=== PATIENT | female | born 1945 | race Caucasian/White ===

== ENCOUNTER 2017-09-18 11:00 | Outpatient (CLI) | payer MEDICARE, OTHER | END 2017-09-18 11:01 | disposition home or self-care (01) | LOC: BICMAMMO 11:00 | PROVIDERS: ATTEND Family Medicine | DX: Z12.31 Encounter for screening mammogram for malignant neoplasm of breast (principal); Z85.3 Personal history of malignant neoplasm of breast; Z80.3 Family history of malignant neoplasm of breast | CPT/HCPCS: 77063; 77067 ==

== ENCOUNTER 2020-11-10 10:37 | Outpatient (CLI) | payer MEDICARE, OTHER | END 2020-11-10 10:38 | disposition home or self-care (01) | LOC: BICMAMMO 10:37 | PROVIDERS: ATTEND Orthopaedic Surgery Sports Medicine | DX: Z12.31 Encounter for screening mammogram for malignant neoplasm of breast (principal); Z80.3 Family history of malignant neoplasm of breast; Z85.3 Personal history of malignant neoplasm of breast; Z98.890 Other specified postprocedural states | CPT/HCPCS: 77063; 77067 ==

== ENCOUNTER 2020-12-23 14:00 | Inpatient (IN) | payer MEDICARE, OTHER ==
[2020-12-28] MEDS ORDERED: Fentanyl 100 MCG/2 ML VIAL ONE ×2 (05:45→06:31)
[2020-12-28] MEDS ORDERED: Tranexamic Acid 1,000 MG/10 ML VIAL ONE (06:10)
[2020-12-28] MEDS ORDERED: Levofloxacin 500 mg/D5W 100 ml Premix Bag ONE (06:10)
[2020-12-28] MEDS ORDERED: Sodium Chloride 0.9% 100 ML ONE (06:10)
[2020-12-28] MEDS ORDERED: Vancomycin 1.5 GRAM/300 ML BAG 1.5 GM in Premix Bag 1 BAG IVPB SCH ×2 (06:15→20:00)
[2020-12-28] MEDS ORDERED: Midazolam HCl 2 mg/2 ml Vial ONE (06:31)
[2020-12-28] MEDS ORDERED: Acetaminophen 325 MG TAB PO PRN (06:49)
[2020-12-28] MEDS ORDERED: diphenhydrAMINE 25 MG CAP PO PRN (06:49)
[2020-12-28] MEDS ORDERED: Fentanyl 100 MCG/2 ML VIAL SLOW IVP PRN ×2 (06:49→07:42)
[2020-12-28] MEDS ORDERED: Ondansetron PF 4 MG/2 ML Vial IVP PRN (06:49)
[2020-12-28] MEDS ORDERED: HYDROcodone/Acetaminophen 10/325 mg Tablet PO PRN ×3 (06:49→07:45)
[2020-12-28] MEDS ORDERED: Promethazine HCl 25 MG/ML VIAL IM PRN ×3 (06:49→08:25)
[2020-12-28] MEDS ORDERED: Zolpidem Tartrate 5 MG TAB PO PRN ×2 (06:49→07:45)
[2020-12-28] MEDS ORDERED: PROPOFOL 200 MG/20 ML VIAL ONE (07:15)
[2020-12-28] MEDS ORDERED: Ondansetron PF 4 MG/2 ML Vial ONE (07:15)
[2020-12-28] MEDS ORDERED: Dexamethasone 20 MG/5 ML VIAL ONE (07:15)
[2020-12-28] MEDS ORDERED: PHENYLEPHRINE-NS 100 MCG/ML 10 ML SYRINGE ONE (07:15)
[2020-12-28] MEDS ORDERED: Ropivacaine 2% HCl/PF (20 MG/10 ML VIAL) ONE (07:15)
[2020-12-28] MEDS ORDERED: Bupivacaine HCl 0.5%/Epinephrine 1:200,000/PF 30 ml Vial ONE (07:15)
[2020-12-28] MEDS ORDERED: traMADol HCl 50 MG TAB PO PRN (07:45)
[2020-12-28] MEDS ORDERED: Ropivacaine 0.2% 550 ML 550 ML NERVE BLCK SCH (07:45)
[2020-12-28] MEDS ORDERED: Ondansetron HCl/PF 4 MG/2 ML Vial IVP PRN (08:25)
[2020-12-28] MEDS ORDERED: Promethazine HCl 25 MG/ML VIAL IVPB PRN (08:25)
[2020-12-28 11:53] VITALS: BMI 40.3
[2020-12-28] MEDS: Sodium Chloride 0.9% 1,000 ML IV SCH (12:01)
[2020-12-28] MEDS: Aspirin 81 mg Enteric Coated Tablet PO SCH (12:01)
[2020-12-28] MEDS: Gabapentin 300 MG CAP PO SCH ×2 (12:01→21:24)
[2020-12-28] MEDS: Lisinopril 10 MG TAB PO SCH (12:02)
[2020-12-28] MEDS: Senokot S 8.6-50 MG TAB PO SCH ×2 (12:03→21:25)
[2020-12-28] MEDS ORDERED: Vancomycin HCl 1.5 GM in Sodium Chloride 0.9% 250 ML 300 ML IVPB SCH (20:00)
[2020-12-28] MEDS: tiZANidine HCl 4 MG TAB PO SCH (21:25)
[2020-12-28] MEDS: Simvastatin 10 MG TAB PO SCH (21:59)
[2020-12-29] MEDS: Sodium Chloride 0.9% 1,000 ML IV SCH ×4 (01:00→23:59)
[2020-12-29] MEDS: Aspirin 81 mg Enteric Coated Tablet PO SCH ×3 (01:01→21:06)
[2020-12-29] MEDS: HYDROcodone/Acetaminophen 10/325 mg Tablet PO PRN ×3 (03:38→15:19)
[2020-12-29 06:44] LABS: Hemoglobin 11.6 g/dL (12.0-16.0); Mean Corpuscular HGB CONC 33.7 g/dL (32.0-36.0); Mean Corpuscular Hemoglobin 29.5 pg (27.0-31.0); Mean Corpuscular Volume 87.7 fL (78.0-98.0); Mean Platelet Volume 7.9 fL (7.4-10.4); Platelet Count 240 thou/uL (130-400); RBC Distribution Width 12.6 % (11.5-14.5); Red Blood Cell (RBC) Count 3.92 mill/uL (4.20-5.40); White Blood Cell (WBC) Count 14.7 thou/uL (4.8-10.8)
[2020-12-29] MEDS: Gabapentin 300 MG CAP PO SCH ×2 (08:34→21:05)
[2020-12-29] MEDS: Senokot S 8.6-50 MG TAB PO SCH ×2 (08:35→21:07)
[2020-12-29] MEDS: Multivitamin W/ Minerals 1 TAB PO SCH (08:35)
[2020-12-29] MEDS: Ferrous Gluconate 324 MG TAB PO SCH ×2 (08:35→21:06)
[2020-12-29] MEDS: Lisinopril 10 MG TAB PO SCH (08:36)
[2020-12-29] MEDS: Ondansetron PF 4 MG/2 ML Vial IVP PRN (10:07)
[2020-12-29] MEDS: traMADol HCl 50 MG TAB PO PRN (21:05)
[2020-12-29] MEDS: tiZANidine HCl 4 MG TAB PO SCH (21:06)
[2020-12-29] MEDS: Simvastatin 10 MG TAB PO SCH (21:07)
[2020-12-30] MEDS: traMADol HCl 50 MG TAB PO PRN ×2 (05:25→19:39)
[2020-12-30] MEDS: Lisinopril 10 MG TAB PO SCH (09:28)
[2020-12-30] MEDS: Ferrous Gluconate 324 MG TAB PO SCH ×2 (09:29→21:01)
[2020-12-30] MEDS: Gabapentin 300 MG CAP PO SCH ×2 (09:29→21:00)
[2020-12-30] MEDS: Aspirin 81 mg Enteric Coated Tablet PO SCH ×2 (09:30→21:00)
[2020-12-30] MEDS: Senokot S 8.6-50 MG TAB PO SCH ×2 (09:30→21:00)
[2020-12-30] MEDS: Multivitamin W/ Minerals 1 TAB PO SCH (09:30)
[2020-12-30] MEDS: Sodium Chloride 0.9% 1,000 ML IV SCH ×2 (09:30→19:34)
[2020-12-30] MEDS: Ondansetron PF 4 MG/2 ML Vial IVP PRN (19:34)
[2020-12-30] MEDS: tiZANidine HCl 4 MG TAB PO SCH (21:00)
[2020-12-30] MEDS: Simvastatin 10 MG TAB PO SCH (21:01)
[2020-12-31] MEDS: traMADol HCl 50 MG TAB PO PRN ×2 (03:52→14:12)
[2020-12-31] MEDS: Sodium Chloride 0.9% 1,000 ML IV SCH ×2 (05:07→08:02)
[2020-12-31] MEDS: Ferrous Gluconate 324 MG TAB PO SCH ×2 (07:53→20:59)
[2020-12-31] MEDS: Senokot S 8.6-50 MG TAB PO SCH ×2 (07:58→20:59)
[2020-12-31] MEDS: Lisinopril 10 MG TAB PO SCH (07:58)
[2020-12-31] MEDS: Aspirin 81 mg Enteric Coated Tablet PO SCH ×2 (07:58→21:00)
[2020-12-31] MEDS: Multivitamin W/ Minerals 1 TAB PO SCH (07:59)
[2020-12-31] MEDS: Gabapentin 300 MG CAP PO SCH ×2 (07:59→21:00)
[2020-12-31] MEDS: tiZANidine HCl 4 MG TAB PO SCH (20:59)
[2020-12-31] MEDS: Simvastatin 10 MG TAB PO SCH (21:01)
[2021-01-01] MEDS: Sodium Chloride 0.9% 1,000 ML IV SCH ×3 (05:15→20:19)
[2021-01-01] MEDS: traMADol HCl 50 MG TAB PO PRN ×3 (05:16→20:17)
[2021-01-01] MEDS: Multivitamin W/ Minerals 1 TAB PO SCH (09:36)
[2021-01-01] MEDS: Gabapentin 300 MG CAP PO SCH ×2 (09:36→20:18)
[2021-01-01] MEDS: Aspirin 81 mg Enteric Coated Tablet PO SCH ×2 (09:36→20:18)
[2021-01-01] MEDS: Senokot S 8.6-50 MG TAB PO SCH ×2 (09:36→20:18)
[2021-01-01] MEDS: Ferrous Gluconate 324 MG TAB PO SCH ×2 (09:36→20:18)
[2021-01-01] MEDS: Lisinopril 10 MG TAB PO SCH ×2 (12:17→20:19)
[2021-01-01] MEDS: tiZANidine HCl 4 MG TAB PO SCH (20:18)
[2021-01-01] MEDS: Simvastatin 10 MG TAB PO SCH (20:19)
[2021-01-02] MEDS: Sodium Chloride 0.9% 1,000 ML IV SCH ×2 (07:26→16:00)
[2021-01-02] MEDS: Senokot S 8.6-50 MG TAB PO SCH ×2 (09:00→20:15)
[2021-01-02] MEDS: Aspirin 81 mg Enteric Coated Tablet PO SCH ×2 (09:01→20:15)
[2021-01-02] MEDS: Ferrous Gluconate 324 MG TAB PO SCH ×2 (09:01→20:15)
[2021-01-02] MEDS: Gabapentin 300 MG CAP PO SCH ×2 (09:01→20:15)
[2021-01-02] MEDS: Multivitamin W/ Minerals 1 TAB PO SCH (09:02)
[2021-01-02] MEDS: traMADol HCl 50 MG TAB PO PRN (09:03)
[2021-01-02] MEDS: Simvastatin 10 MG TAB PO SCH (20:16)
[2021-01-02] MEDS: Lisinopril 10 MG TAB PO SCH (20:16)
[2021-01-02] MEDS: tiZANidine HCl 4 MG TAB PO SCH (20:16)
[2021-01-03] MEDS: Sodium Chloride 0.9% 1,000 ML IV SCH ×2 (05:38→15:20)
[2021-01-03] MEDS: Multivitamin W/ Minerals 1 TAB PO SCH (09:29)
[2021-01-03] MEDS: Ferrous Gluconate 324 MG TAB PO SCH ×2 (09:29→20:29)
[2021-01-03] MEDS: Senokot S 8.6-50 MG TAB PO SCH ×2 (09:44→20:28)
[2021-01-03] MEDS: Gabapentin 300 MG CAP PO SCH ×2 (09:44→20:29)
[2021-01-03] MEDS: Ondansetron PF 4 MG/2 ML Vial IVP PRN (09:44)
[2021-01-03] MEDS: Aspirin 81 mg Enteric Coated Tablet PO SCH ×2 (09:44→20:29)
[2021-01-03] MEDS: tiZANidine HCl 4 MG TAB PO SCH (20:28)
[2021-01-03] MEDS: Lisinopril 10 MG TAB PO SCH (20:28)
[2021-01-03] MEDS: Simvastatin 10 MG TAB PO SCH (20:28)
[2021-01-03] MEDS: traMADol HCl 50 MG TAB PO PRN (20:30)
[2021-01-04] MEDS: Sodium Chloride 0.9% 1,000 ML IV SCH ×3 (00:14→20:26)
[2021-01-04] MEDS: Senokot S 8.6-50 MG TAB PO SCH ×2 (08:36→20:29)
[2021-01-04] MEDS: Aspirin 81 mg Enteric Coated Tablet PO SCH ×2 (08:40→20:28)
[2021-01-04] MEDS: Gabapentin 300 MG CAP PO SCH ×2 (08:40→20:28)
[2021-01-04] MEDS: Ferrous Gluconate 324 MG TAB PO SCH ×2 (08:41→20:28)
[2021-01-04] MEDS: Multivitamin W/ Minerals 1 TAB PO SCH (08:43)
[2021-01-04] MEDS: traMADol HCl 50 MG TAB PO PRN ×2 (10:20→20:27)
[2021-01-04 19:44] VITALS: BP 145/78; TEMP 98.4
[2021-01-04] MEDS: tiZANidine HCl 4 MG TAB PO SCH (20:27)
[2021-01-04] MEDS: Lisinopril 10 MG TAB PO SCH (20:28)
[2021-01-04] MEDS: Simvastatin 10 MG TAB PO SCH (20:28)
== END 2021-01-04 21:00 | DRG 470 ==
LOC: SJJU 12-28 05:37 → EDSTATUS 12-28 14:00
PROVIDERS: ADMIT Orthopaedic Surgery; ATTEND Orthopaedic Surgery
PROC: 0SRD0J9 Replacement of Left Knee Joint with Synthetic Substitute, Cemented, Open Approach (ICD-10-PCS; principal; 2020-12-28)
PROC: 3E0T3BZ Introduction of Anesthetic Agent into Peripheral Nerves and Plexi, Percutaneous Approach (ICD-10-PCS; 2020-12-28)
DX: M17.0 Bilateral primary osteoarthritis of knee (principal); Z20.822 Contact with and (suspected) exposure to COVID-19; E78.5 Hyperlipidemia, unspecified; E78.00 Pure hypercholesterolemia, unspecified; I10 Essential (primary) hypertension; G89.29 Other chronic pain; Z79.899 Other long term (current) drug therapy; Z82.49 Family history of ischemic heart disease and other diseases of the circulatory system; Z85.3 Personal history of malignant neoplasm of breast
CPT/HCPCS: 36415; 85027; A4306; C1713; C1776; J1100; J1956; J2250; J2405; J2704; J2795; J3010; J3370; J3490

== ENCOUNTER 2020-12-23 14:09 | Outpatient (CLI) | payer MEDICARE, OTHER ==
[2020-12-23 15:26] LABS: #Eosinphils 0.2 10x3/uL (0.0-0.5); #Monocytes 0.7 10x3/uL (0.0-1.1); #Neutrophils 8.2 10x3/uL (1.5-8.4); %Basophils 0.4 % (0.0-2.0); %Eosinophils 2.1 % (0.0-6.0); %Lymphocytes 17.1 % (18.0-47.0); Mean Corpuscular HGB CONC 32.3 g/dL (32.0-36.0); Mean Corpuscular Hemoglobin 28.2 pg (27.0-33.0); Mean Corpuscular Volume 87.2 fl (81.6-98.3); Mean Platelet Volume 10.3 fl (7.4-10.4); Platelet Count 339 10x3/uL (150-450); RBC Distribution Width 13.6 % (11.5-14.5); Red Blood Cell (RBC) Count 4.61 10x6/uL (3.90-5.03); White Blood Cell (WBC) Count 11.1 10x3/uL (3.5-10.5)
[2020-12-23 15:54] LABS: Prothrombin Time 11.4 sec (9.5-12.1)
[2020-12-23 16:03] LABS: Anion Gap 16 mmol/L (10-20); BUN (Urea Nitrogen) 22 mg/dL (9.8-20.1); Calc. Creatinine Clearance 0 mL/min (70-130); Calcium 9.6 mg/dL (7.8-10.44); Carbon Dioxide 23 mmol/L (23-31); Chloride 103 mmol/L (98-107); Glucose 109 mg/dL (83-110); Potassium 4.4 mmol/L (3.5-5.1); Sodium 138 mmol/L (136-145)
[2020-12-24 11:09] LABS: SARS-CoV-2 PCR by NAA Not Detected (NotDetected)
== END 2020-12-23 14:10 | disposition home or self-care (01) ==
LOC: LABBT 14:09
PROVIDERS: ATTEND Orthopaedic Surgery
DX: Z01.818 Encounter for other preprocedural examination (principal); M17.12 Unilateral primary osteoarthritis, left knee; Z20.822 Contact with and (suspected) exposure to COVID-19
CPT/HCPCS: 80048; 85025; 85610; 87081; 93005; U0003; U0005; 93010

== ENCOUNTER 2021-11-14 11:14 | Outpatient (CLI) | payer MEDICARE, OTHER | END 2021-11-14 11:15 | disposition home or self-care (01) | LOC: BICMAMMO 11:14 | PROVIDERS: ATTEND Internal Medicine Hematology & Oncology | DX: Z12.31 Encounter for screening mammogram for malignant neoplasm of breast (principal); R92.1 Mammographic calcification found on diagnostic imaging of breast; Z85.3 Personal history of malignant neoplasm of breast; Z80.3 Family history of malignant neoplasm of breast; Z98.890 Other specified postprocedural states | CPT/HCPCS: 77063; 77067 ==

== ENCOUNTER 2023-01-03 10:54 | Outpatient (CLI) | payer MEDICARE, OTHER | END 2023-01-03 10:55 | disposition home or self-care (01) | LOC: BICMAMMO 10:54 | PROVIDERS: ATTEND Internal Medicine Hematology & Oncology | DX: Z12.31 Encounter for screening mammogram for malignant neoplasm of breast (principal); Z80.3 Family history of malignant neoplasm of breast; Z85.3 Personal history of malignant neoplasm of breast; Z90.11 Acquired absence of right breast and nipple | CPT/HCPCS: 77063; 77067 ==

== ENCOUNTER 2023-04-26 10:28 | Outpatient (CLI) | payer MEDICARE, OTHER | END 2023-04-26 10:29 | disposition home or self-care (01) | LOC: RAD 10:28 | PROVIDERS: ATTEND Neurological Surgery | DX: M54.50 Low back pain, unspecified (principal); M47.816 Spondylosis without myelopathy or radiculopathy, lumbar region; N28.89 Other specified disorders of kidney and ureter | CPT/HCPCS: 72120 ==

== ENCOUNTER 2024-07-16 09:34 | Outpatient (CLI) | payer MEDICARE, OTHER ==
[~2024-07-16 09:34] MED LIST: Iopamidol 370 76% 100 ML VIAL ONE
== END 2024-07-16 09:35 | disposition home or self-care (01) ==
LOC: BICCT 09:34
PROVIDERS: ATTEND Internal Medicine Gastroenterology
DX: R10.84 Generalized abdominal pain (principal); R11.0 Nausea; K76.89 Other specified diseases of liver
CPT/HCPCS: 36415; 74177; 82565